=== PATIENT | male | born 1980 | race African-American/Black ===

== ENCOUNTER 2021-11-07 15:22 | Inpatient (IN) | payer SELFPAY ==
[2021-11-07] MEDS ORDERED: NA CHLORIDE 0.9% 1,000 ML ONE (15:46)
[2021-11-07 16:06] LABS: Absolute Lymphocytes (CBC) 1.2 K/uL (0.7-4.9); Hematocrit 47.1 % (39.6-49.0); Lymphocytes % 20.7 % (15.3-44.8); MCV 91.1 fL (80-100); MPV 9.2 fL (7.6-11.3); RBC Red Blood Cell Count 5.17 M/uL (4.33-5.43)
--- NOTE | 2021-11-07 16:39 | RAD REPORT ---
EXAM DESCRIPTION: CT - CTHCSPWOC - 11/07/2021 4:30 pm CLINICAL HISTORY: Trauma, head and neck injury. trauma COMPARISON: No comparisons TECHNIQUE: Axial 5 mm thick images of the head were obtained. Axial 2 mm thick images of the cervical spine were obtained with sagittal and coronal reconstruction images generated and reviewed. All CT scans are performed using dose optimization technique as appropriate and may include automated exposure control or mA/KV adjustment according to patient size. FINDINGS: CT HEAD WITHOUT CONTRAST: No acute hemorrhage, hydrocephalus or extra-axial collection is identified.No areas of brain edema or midline shift. High density fluid is seen in the right maxillary antrum and right ethmoid air cells compatible with hemorrhage.The calvarium is intact. CT CERVICAL SPINE WITHOUT CONTRAST: No fracture or subluxation.Mild lower cervical degenerative changes are present.No prevertebral soft tissues swelling is identified. IMPRESSION: No acute intracranial or cervical spine findings. Mild amount of blood is present in the right ethmoid air cells of the right maxillary antrum.
--- NOTE | 2021-11-07 16:44 | RAD REPORT ---
EXAM DESCRIPTION: CT - CTFB CLINICAL HISTORY: trauma Trauma, facial pain and swelling. COMPARISON: No comparisons TECHNIQUE: Axial 2 mm thick images of the face were obtained with sagittal and coronal reconstructio n images. All CT scans are performed using dose optimization technique as appropriate and may include automated exposure control or mA/KV adjustment according to patient size. FINDINGS: Right-sided orbital blowout fracture is present. Fracture segment is 11 mm in length and d isplaced into the maxillary antrum approximately 2 mm. No muscle herniation. Small defect in the righ t lamina papyracea also present likely a fracture.Mild blood is seen in the right ethmoid air cell an d right maxillary sinus.The mandible is intact. Left nasal bone is slightly angulated and could be br oken, however age of this is unclear. Mild right periorbital soft tissue swelling. IMPRESSION: Right-sided orbital blowout fracture is present as detailed. Subtle fracture right lamina papyracea and possibly left nasal bone.
[2021-11-07] MEDS ORDERED: LIDOCAINE 1% MPF 5 ML VIAL ONE ×2 (18:09→18:10)
[2021-11-07] MEDS ORDERED: METHYLPREDNISOLONE 40 MG INJ ONE (18:09)
[2021-11-07] MEDS ORDERED: CEFAZOLIN SODIUM 1 GM/VIAL ONE (18:09)
[2021-11-07 18:55] LABS: Potassium 3.9 mmol/L (3.5-5.1)
[2021-11-07 19:38] LABS: SARS-CoV-2 Antigen Rapid Res Negative (Negative)
--- NOTE | 2021-11-07 19:39 | EDPHYS ---
Physician Documentation [facility] Name: Janak Mccarthy Age: 41 yrs Sex: Male : 1980 Arrival Date: 11/07/2021 Time: 15:23 Bed 17 Private MD: ED Physician Reji Briscoe HPI: 11/07 20:19 This 41 yrs old Black Male presents to ER via EMS with complaints of Facial Injury. kb 20:19 The patient or guardian reports a laceration, pain, swelling, tenderness. The kb complaints affect the right eye, right cheek and mouth. Context of injury: The problem was sustained outdoors, resulted from a fall, while running. Onset: The symptoms/episode began/occurred just prior to arrival. Associated signs and symptoms: Loss of consciousness: This patient did not experience any loss of consciousness. Pertinent positives: facial pain. Severity of symptoms: At their worst the symptoms were moderate, in the emergency department the symptoms are unchanged. The patient has not experienced similar symptoms in the past. The patient has not recently seen a physician. Historical: - Allergies: 15:38 No Known Allergies; ld1 - Home Meds: 15:38 None [Active]; ld1 - PMHx: 15:38 None; ld1 - PSHx: 15:38 None; ld1 - Immunization history:: Adult Immunizations up to date, Client reports having NOT received the Covid vaccine. - Social history:: Smoking status: Patient denies any tobacco usage or history of. Patient uses street drugs, marijuana, Patient/guardian denies using alcohol. ROS: 18:49 Constitutional: Negative for fever, chills, and weight loss. kb Exam: 20:08 Constitutional: This is a well developed, well nourished patient who is awake, alert, kb and in no acute distress. Cardiovascular: Regular rate and rhythm with a normal S1 and S2. No gallops, murmurs, or rubs. No pulse deficits. Respiratory: Respirations even and unlabored. No increased work of breathing. Talking in full sentences Abdomen/GI: Soft, non-tender. No distention MS/ Extremity: Pulses equal, no cyanosis. Neurovascular intact. Full, normal range of motion. Neuro: Awake and alert, but drowsy; oriented to person, place, time, and situation. Moves all extremities. Psych: Awake, alert, with orientation to person, place and time. Behavior, mood, and affect are within normal limits. 20:08 Head/face: Noted is no obvious of injury or deformity except ecchymosis, that is mild, of the right eye and right cheek, a laceration(s), that is superficial, 1.5 cm(s), of the inner lower lip, swelling, that is moderate, of the right eye, right cheek and mouth. 20:08 ENT: Nose: clotted blood, in right nare, Mouth: Lips: lacerated, approximately 1.5 cm(s), lower lip. 20:08 Skin: injury, abrasion(s), small abrasion noted, of the dorsum of left hand. 20:08 Neuro: Orientation: is normal, Mentation: is normal, able to follow commands, Motor: moves all fours. Vital Signs: 15:32 BP 136 / 94; Pulse 102; Resp 18; Temp 97.9(TE); Pulse Ox 100% on R/A; Weight 99.79 kg; ld1 Height 6 ft. 0 in. (182.88 cm); Pain 9/10; 15:32 Body Mass Index 29.84 (99.79 kg, 182.88 cm) ld1 [address] Coma Score: 17:52 Eye Response: spontaneous(4). Verbal Response: oriented(5). Motor Response: obeys kb commands(6). Total: 15. 20:19 Eye Response: spontaneous(4). Verbal Response: oriented(5). Motor Response: obeys kb commands(6). Total: 15. Laceration: 20:07 Wound Repair of 1.5cm ( 0.6in ) subcutaneous laceration to lower lip. Linear shaped.. kb Distal neuro/vascular/tendon intact. Anesthesia: Wound infiltrated with 2 mls of 1% lidocaine. Wound prep: Wound irrigation with saline. Skin closed with 3 5-0 chromic gut using simple sutures and sterile technique. Patient tolerated well. MDM: 15:24 Patient medically screened. kb 17:52 Data reviewed: vital signs, nurses notes. Data interpreted: Pulse oximetry: on room air kb is 100 %. Interpretation: normal. Physician consultation: Rozina Shelton MD was contacted at 17:04, regarding consult, patient's condition, and will see patient in inpatient room, wants pt admitted to hospitalist, she will see pt in the morning. 17:55 Counseling: I had a detailed discussion with the patient and/or guardian regarding: the kb historical points, exam findings, and any diagnostic results supporting the discharge/admit diagnosis, radiology results, the need for further work-up and treatment in the hospital. 11/07 15:32 Order name: CBC with Diff; Complete Time: 16:14 kb 11/07 15:32 Order name: Basic Metabolic Panel; Complete Time: 18:59 kb 11/07 15:32 Order name: CPK; Complete Time: 18:59 kb 11/07 15:32 Order name: CT Head C Spine; Complete Time: 16:48 kb 11/07 15:32 Order name: CT Facial Bones W/O Con; Complete Time: 16:48 kb 11/07 18:51 Order name: SARS RAPID; Complete Time: 19:42 ss 11/07 15:32 Order name: IV Start; Complete Time: 15:40 kb 11/07 16:13 Order name: Labs - recollect needed: recollect green top; Complete Time: 18:28 bd 11/07 17:55 Order name: Chromic, Sutures; Complete Time: 20:08 kb 11/07 17:55 Order name: Dressing - Wound; Complete Time: 20:08 kb 11/07 17:55 Order name: Gloves, Sterile; Complete Time: 20:08 kb 11/07 17:55 Order name: Setup Suture Tray; Complete Time: 20:08 kb Administered Medications: 15:52 Drug: NS 0.9% 1000 ml Route: IV; Rate: 1000 ml; Site: left antecubital; 11/08 07:26 Follow up: IV Status: Completed infusion; IV Intake: 1000ml [facility] 11/07 18:20 Drug: Ancef (cefazolin) 1 grams Route: IVPB; Site: right antecubital; 11/08 07:26 Follow up: IV Status: Completed infusion; IV Intake: 100ml [facility] 11/07 18:20 Drug: SOLU-Medrol (methylPrednisoLONE) 40 mg Route: IVP; Site: left antecubital; 11/08 07:25 Follow up: Response: No adverse reaction [facility] 11/07 20:08 Drug: Lidocaine (1 %) 1 vials {Note: administered by MINA Parsons.} Volume: 5 ml; Route: sm5 Infiltration; 11/08 07:25 Follow up: Response: No adverse reaction jg9 Disposition Summary: 11/07/21 19:38 Hospitalization Ordered Hospitalization Status: Observation kb Provider: Vernon Arias Condition: Stable kb Problem: new kb Symptoms: are unchanged kb Bed/Room Type: Standard kb Location: Telemetry/MedSurg (observation)(11/08/21 12:14) Room Assignment: [facility](11/08/21 12:14) dw Diagnosis - Right sided orbital blowout fracture kb - Laceration of lip and oral cavity without foreign body kb Forms: - Medication Reconciliation Form kb - SBAR form kb Addendum: 11/11/2021 18:48 Co-signature as Attending Physician, Reji Briscoe MD I agree with the assessment and c velasquez plan of care. Signatures: Dispatcher [employer] EDMS Jaqueline Gonzales, MATEO-C CNS-Ckb Joslyn Thompson Diana, RN RN Reji Lang MD MD cha Garcia, Cindy, RN RN Renetta Johnson, RN RN ld1 Tania Peña RN RN sm5 Isabel Moreno RN RN Humaira Rodriguez RN jg9 Corrections: (The following items were deleted from the chart) 11/07 21:00 19:38 Telemetry/MedSurg (observation) kb cg 21:00 19:38 kb cg 11/08 12:14 11/07 21:00 [facility] ER HOLD cg dw 11/08 12:11/07 21:00 ERHOLD- cg dw
--- NOTE | 2021-11-07 19:39 | ER ---
Nurse's Notes [facility] Name: Janak Mccarthy Age: 41 yrs Sex: Male : 1980 Arrival Date: 11/07/2021 Time: 15:23 Bed 17 Private MD: Diagnosis: Right sided orbital blowout fracture;Laceration of lip and oral cavity without foreign body Presentation: 11/07 15:32 Chief complaint: Patient states: EMS reports pt running from sand control worker in mall parking lot. ld1 Pt reports being tazed - fell forward onto face. Denies LOC. Pt reports losing front tooth, facial pain, laceration to bottom lip. Coronavirus screen: At this time, the client does not indicate any symptoms associated with coronavirus-19. Ebola Screen: No symptoms or risks identified at this time. Initial Sepsis Screen: Does the patient meet any 2 criteria? No. Patient's initial sepsis screen is negative. Does the patient have a suspected source of infection? No. Patient's initial sepsis screen is negative. Risk Assessment: Do you want to hurt yourself or someone else? Patient reports no desire to harm self or others. Onset of symptoms was November 07, 2021. 15:32 Method Of Arrival: EMS: [facility] ld1 15:32 Acuity: ROSALES 3 ld1 Triage Assessment: 15:38 General: Appears in no apparent distress. comfortable, Behavior is calm, cooperative, ld1 appropriate for age. Pain: Complains of pain in mouth, chin and right jaw Pain does not radiate. Pain currently is 9 out of 10 on a pain scale. Quality of pain is described as throbbing. EENT: No signs and/or symptoms were reported regarding the EENT system. Neuro: Level of Consciousness is awake, alert, obeys commands, Oriented to person, place, time, situation. Cardiovascular: Capillary refill < 3 seconds Patient's skin is warm and dry. Respiratory: Airway is patent Respiratory effort is even, unlabored. GI: Abdomen is round non-distended. : No signs and/or symptoms were reported regarding the genitourinary system. Derm: No signs and/or symptoms reported regarding the dermatologic system. Musculoskeletal: No signs and/or symptoms reported regarding the musculoskeletal system. Historical: - Allergies: 15:38 No Known Allergies; ld1 - Home Meds: 15:38 None [Active]; ld1 - PMHx: 15:38 None; ld1 - PSHx: 15:38 None; ld1 - Immunization history:: Adult Immunizations up to date, Client reports having NOT received the Covid vaccine. - Social history:: Smoking status: Patient denies any tobacco usage or history of. Patient uses street drugs, marijuana, Patient/guardian denies using alcohol. Screenin:08 Abuse screen: Denies threats or abuse. Denies injuries from another. Nutritional sm5 screening: No deficits noted. Tuberculosis screening: No symptoms or risk factors identified. Fall Risk None identified. Assessment: 19:30 General: Appears in no apparent distress. Behavior is cooperative. Neuro: Level of sm5 Consciousness is awake, alert, obeys commands, Oriented to person, place, time, situation. Cardiovascular: Capillary refill < 3 seconds Patient's skin is warm and dry. Respiratory: Airway is patent Trachea midline Respiratory effort is even, unlabored. Derm: Wound noted left hand and lower lip. Vital Signs: 15:32 BP 136 / 94; Pulse 102; Resp 18; Temp 97.9(TE); Pulse Ox 100% on R/A; Weight 99.79 kg; ld1 Height 6 ft. 0 in. (182.88 cm); Pain 9/10; 15:32 Body Mass Index 29.84 (99.79 kg, 182.88 cm) ld1 Tian Coma Score: 17:52 Eye Response: spontaneous(4). Verbal Response: oriented(5). Motor Response: obeys kb commands(6). Total: 15. 20:19 Eye Response: spontaneous(4). Verbal Response: oriented(5). Motor Response: obeys kb commands(6). Total: 15. ED Course: 15:23 Patient arrived in ED. bd 15:24 Jaqueline Gonzales FNP-C [facility]. kb 15:24 Reji Briscoe MD is Attending Physician. kb 15:28 Renetta Johnson, CRISTINO is Primary Nurse. ld1 15:29 Isabel Moreno, CRISTINO is Primary Nurse. velasquez 15:35 Triage completed. ld1 15:38 Arm band placed on right wrist. ld1 15:39 Initial lab(s) drawn, by me, sent to lab. Inserted saline lock: 20 gauge in left jw7 antecubital area, using aseptic technique. Blood collected. 16:32 CT Head C Spine In Process Unspecified. EDMS 16:32 CT Facial Bones W/O Con In Process Unspecified. EDMS 18:28 Lab(s) recollected, by me, sent to lab. Inserted saline lock: 22 gauge in left hand, jw7 using aseptic technique. Blood collected. 19:37 Rozina Shelton MD is Hospitalizing Provider. kb 19:37 Vernon Arias is Hospitalizing Provider. kb 20:08 Assist provider with laceration repair on lower lip using sutures. Set up tray. sm5 Performed by Jaqueline LOPEZ Patient tolerated well. 20:08 Patient has correct armband on for positive identification. Bed in low position. Call sm5 light in reach. Side rails up X2. police at bedside. 11/08 07:25 Patient admitted, IV remains in place. jg9 Administered Medications: 11/07 15:52 Drug: NS 0.9% 1000 ml Route: IV; Rate: 1000 ml; Site: left antecubital; 11/08 07:26 Follow up: IV Status: Completed infusion; IV Intake: 1000ml [facility] 11/07 18:20 Drug: Ancef (cefazolin) 1 grams Route: IVPB; Site: right antecubital; 11/08 07:26 Follow up: IV Status: Completed infusion; IV Intake: 100ml [facility] 11/07 18:20 Drug: SOLU-Medrol (methylPrednisoLONE) 40 mg Route: IVP; Site: left antecubital; 11/08 07:25 Follow up: Response: No adverse reaction j9 11/07 20:08 Drug: Lidocaine (1 %) 1 vials {Note: administered by MINA Parsons.} Volume: 5 ml; Route: sm5 Infiltration; 11/08 07:25 Follow up: Response: No adverse reaction jg9 Medication: 11/07 20:08 VIS not applicable for this client. sm5 Intake: 11/08 07:26 IV: 100ml; Total: 100ml. j 07: IV: 1000ml; Total: 1100ml. jg9 Outcome: 11/07 19:38 Decision to Hospitalize by Provider. coco 11/08 07:25 Admitted to ER Hold. Please see [facility] for further documentation. jg9 Condition: stable 12:35 Patient left the ED. jg9 Signatures: Dispatcher [employer] EDMS Jaqueline Gonzales, DUMPER MOLD CLEANER-C DUMPER MOLD CLEANER-Joslyn Mccormick Lauren RN RN ld1 Tania Peña, RN RN sm5 Humaira Castaneda RN RN jg9 Bhumika-StagerIsabel RN RN ha Waits, Jodi jw7 Corrections: (The following items were deleted from the chart) 11/07 15:38 15:32 Chief complaint: Patient states: EMS reports pt running from sand control worker in mall parking ld1 lot. Pt reports being tazed - fell forward onto face. Denies LOC. Pt reports losing front tooth, facial pain, laceration to bottom lip. ld1
--- NOTE | 2021-11-07 20:33 | P.HP ---
Certification for Inpatient Patient admitted to: Observation With expected LOS: <2 Midnights Patient will require the following post-hospital care: None Practitioner: I am a practitioner with admitting privileges, knowledge of patient current condition, hospital course, and medical plan of care. Services: Services provided to patient in accordance with Admission requirements found in Title 42 Section 412.3 of the Code of Federal Regulations Patient History Date of Service: 11/07/21 Reason for admission: Orbital Blowout Fracture History of Present Illness: Patient is a 41 y/o male who presented to the ED via EMS after fall. Per EMS, patient shoplifted from the mall and was running away from the police when police tazed him. He fell forward onto his face, no LOC. Laceration noted to bottom lip, ecchymosis R eye, R lateral incisor cracked in half, abrasions on left dorsum of hand. CT facial bones showed right-sided orbital blowout fracture, subtle fracture of right lamina papyracea, and possible left nasal bone fracture. CT head/spine negative. CPK 368. Laceration repaired in ED. ED provider contacted ENT who recommended patient to see her in clinic tomorrow morning. However, since patient is in police custody that would not be possible. She wished for him to be admitted to hospitalist and will see him in the morning. Patient started on ancef and solumedrol. Patient appears to be under the influence as he is very sleepy but arousable. UDS pending. He is admitted for observation. Home medications list reviewed: Yes - Past Medical/Surgical History Diabetic: No Past Medical History: Patient denies medical history Past Surgical History: Patient denies surgical history Psychosocial/ Personal History: Patient lives at home. - Family History Family History: Reviewed- Non-Contributory - Social History Smoking Status: Never smoker Alcohol use: No CD- Drugs: Yes Caffeine use: Yes Place of Residence: Home Review of Systems ENT: As per HPI Physical Examination - Physical Exam General: Disheveled, Other (Sleepy, but arousable. Altered.) HEENT: PERRLA, Other (Ecchymosis R orbit. 1.5 cm laceration lower lip, repaired.), EOMI Neck: Supple, No LAD Respiratory: Clear to auscultation bilaterally, Normal air movement Cardiovascular: Regular rate/rhythm, Normal S1 S2 Gastrointestinal: Normal bowel sounds, No tenderness Musculoskeletal: No tenderness Integumentary: Other (abrasions noted to L dorsum of hand) Neurological: Normal speech, Normal strength at 5/5 x4 extr, Normal tone - Studies Laboratory Data (last 24 hrs) 11/07/21 18:25: Sodium 143, Potassium 3.9, BUN 9, Creatinine 1.18, Glucose 95 11/07/21 15:55: WBC 5.6, Hgb 16.0, Hct 47.1, Plt Count 294 Assessment and Plan - Problems (Diagnosis) (1) Fracture of orbital floor, blow-out, right, closed Current Visit: Yes Status: Acute (2) Closed lamina papyracea fracture Current Visit: Yes Status: Acute (3) Elevated CPK Current Visit: Yes Status: Acute - Plan -Continue IV fluids for elevated CPK -Ancef and solumedrol per ENT request -UDS pending -Monitor and replete electrolytes per protocol -Reconcile and continue home medications -Lovenox for VTE ppx -Full code Discharge Plan: Home Plan to discharge in: 24 Hours - Advance Directives Does patient have a Living Will: No Does patient have a Durable POA for Healthcare: No - Code Status/Comfort Care Code Status Assessed: Yes (Full) Critical Care: No Time Spent Managing Pts Care (In Minutes): 50
[2021-11-08] MEDS: METHYLPREDNISOLONE 40 MG INJ IV SCH ×4 (00:03→17:00)
[2021-11-08] MEDS: NA CHLORIDE 0.9% 1,000 ML IV SCH ×3 (00:03→20:34)
[2021-11-08] MEDS ORDERED: ONDANSETRON 4 MG/2 ML VIAL IV PRN (00:03)
[2021-11-08] MEDS ORDERED: ACETAMINOPHEN 500 MG TAB PO PRN (00:03)
[2021-11-08] MEDS: CEFAZOLIN 1 GM in NA CHLORIDE 0.9% 50 ML IVPB SCH ×3 (01:00→16:54)
[2021-11-08 01:03] VITALS: BMI 29.8
[2021-11-08] MEDS ORDERED: NA CHLORIDE 0.9% 1,000 ML ONE (01:36)
[2021-11-08] MEDS ORDERED: METHYLPREDNISOLONE 40 MG INJ ONE ×3 (01:36→10:01)
[2021-11-08] MEDS ORDERED: NA CHLORIDE 0.9% 50 ML ONE ×2 (01:36→10:01)
[2021-11-08] MEDS ORDERED: CEFAZOLIN SODIUM 1 GM/VIAL ONE ×2 (01:36→10:01)
[2021-11-08] MEDS ORDERED: ACETAMINOPHEN 500 MG TAB ONE (07:51)
[2021-11-08] MEDS: ENOXAPARIN 40 MG/0.4 ML SQ SCH (09:00)
[2021-11-08] MEDS ORDERED: ENOXAPARIN 40 MG/0.4 ML SQ ONE (10:01)
--- NOTE | 2021-11-08 10:24 | P.PN ---
Date of Service: 11/08/21 ENT Consultation Please see dictated H&P Impression: 1. Closed Rright orbital floor fracture s/p trauma--minimal displacement 2. Right lamina papyracea displaced fracture 3. Bilateral acute maxillary and right ethmoid sinusitis 4. Right eye visual disturbance Plan: 1. Continue steroids and antibiotics. 2. Will re-evaluate right eye vision in 24 hours Thank you for this most interesting consultation and for your fantastic medical management.
[2021-11-08] MEDS: MORPHINE 4 MG/ML SYR IV PRN ×2 (12:41→17:57)
[2021-11-08] MEDS ORDERED: MORPHINE 4 MG/ML SYR ONE (12:45)
[2021-11-08] MEDS ORDERED: ONDANSETRON 4 MG/2 ML VIAL ONE (12:45)
[2021-11-09] MEDS: METHYLPREDNISOLONE 40 MG INJ IV SCH ×3 (00:33→09:17)
[2021-11-09] MEDS: CEFAZOLIN 1 GM in NA CHLORIDE 0.9% 50 ML IVPB SCH ×2 (00:33→09:17)
[2021-11-09] MEDS: MORPHINE 4 MG/ML SYR IV PRN ×2 (00:38→09:17)
--- NOTE | 2021-11-09 01:33 | P.PN ---
Subjective Date of Service: 11/08/21 Pain is controlled. Continue with IV antibiotics and IV pain medication. Surgery in a.m. per ENT. Review of Systems 10-point ROS is otherwise unremarkable Physical Examination - Vital Signs Temperature: 98.1 F Blood Pressure: 141/86 Pulse: 85 Respirations: 16 Pulse Ox (%): 96 - Physical Exam General: Alert, In no apparent distress HEENT: Atraumatic, PERRLA, EOMI Neck: Supple, JVD not distended Respiratory: Clear to auscultation bilaterally, Normal air movement Cardiovascular: Regular rate/rhythm, Normal S1 S2 Gastrointestinal: Normal bowel sounds, No tenderness Musculoskeletal: No tenderness Integumentary: No rashes Neurological: Normal speech, Normal tone, Normal affect Lymphatics: No axilla or inguinal lymphadenopathy - Studies Medications List Reviewed: Yes Assessment & Plan - Problems (Diagnosis) (1) Fracture of orbital floor, blow-out, right, closed Current Visit: Yes Status: Acute (2) Nasal bone fracture Current Visit: Yes Status: Acute - Plan plan: 1. Pain control 2. IV fluids 3. IV antibiotics 4. Appreciate ENT consultation 5. medically low risk for cardiopulmonary complications during surgery - Advance Directives Does patient have a Living Will: No Does patient have a Durable POA for Healthcare: No
[2021-11-09 01:41] VITALS: O2SAT 98
[2021-11-09] MEDS: NA CHLORIDE 0.9% 1,000 ML IV SCH (05:56)
[2021-11-09] MEDS: ENOXAPARIN 40 MG/0.4 ML SQ SCH (09:17)
--- NOTE | 2021-11-09 11:07 | P.PN ---
Date of Service: 11/09/21 ENT Progress Note Patient seen and examined. Right facial, lip and right periorbital swelling and pain have improved with steroids. He still reports "foggy" vision in lateral and inferior gaze and he reports double vision when trying to focus on an object, and it is worsened in a lit room. He also has light hypersensitivity in the r ight eye. Exam: Head: much improved soft tissue swelling of face Eyes: Left eye-- intact visual acuity, PERRLA, EOMI Right eye-- improved visual acuity from yesterday's exam but patient has significant blurred vision in lateral and inferior gaze; PERRLA; scleral injection, no hyphema; injected conjunctival mucosa but no foreign body detected; ecchymosis medial canthus Ears: deferred Nose: improved patency; no active bleeding or blood clots; mild right nasal crusting Oral cavity: much improved lower lip swelling, no dehiscence of repaired laceration; right upper lateral incisor tooth intact, although cracked; midline uvula; posterior oropharynx intact; no bleeding or exudate Neck: supple, trachea midline, no mass or LAD Impression: 1. Right eye visual disturbances to include blurred and double vision with inferior and lateral gaze-- unchanged from prior exam 2. Closed Rright orbital floor fracture s/p trauma 3. Right lamina papyracea displaced fracture s/p trauma 4. Bilateral acute maxillary and right ethmoid sinusitis Plan: 1. Recommend transfer to [facility] in [place]-- for OMFS and possibly oculoplastics, if available as we do not have the equipment available here for definitive repair. 2. Continue steroids and antibiotics as prescribed.
[2021-11-09 12:20] VITALS: BP 138/68; TEMP 97.5
--- NOTE | 2021-11-09 12:22 | CON ---
Date of Consultation: 11/08/2021 Chief Complaint: Right eye pain and blurry vision. History Of Present Illness: The patient is a 41-year-old male, who presented to the emergency room after falling and hitting the right side of his face. He fell forward onto his face, possibly from a concrete curb, which resulted in bottom lip laceration, right inferior orbital floor fracture, and right upper lateral broken incisor tooth as well as multiple abrasions. ENT was consulted due to the fact that the CT of the facial bones demonstrated a right inferior orbital floor fracture as well as a fracture of the right lamina papyracea and possible left nasal bone fracture. Upon arrival to bedside, the patient is awake, alert, oriented and was able to provide the history. Currently, he describes right eye foggy vision and occasional double vision during lateral gaze. He states that right eye pain is tolerable and he actually complains more about the right upper lateral incisor crack tooth stating that he is having pain of the surrounding gingiva. He initially had right nasal epistaxis, but this has subsided since admission and right cheek pain and right frontal pain have improved since admission. No other ENT complaints today. Past Medical History: Denies. Past Surgical History: Denies. Family History: Noncontributory. Social History: Denies tobacco, alcohol, but uses marijuana occasionally. Review of Systems: Head: Right forehead and cheek pain extending to the right periorbital area. Eyes: Right double vision in lateral gaze and blurred vision with mild epiphora. Left eye normal Ears: Denies otorrhea, otalgia. Nose: Positive for right nasal epistaxis and bilateral nasal congestion, negative for exudate. Oral Cavity: Lower lip swelling and right lateral upper incisor cracked tooth with surrounding gingival pain. Neck: Denies mass, enlarged lymph nodes, anterior neck pain; positive for posterior neck pain upon flexion and extension. Physical Examination: Vital Signs: Stable. General: The patient is awake, alert, oriented to person, place, and time. Head: Demonstrates [id number] swelling involving the right cheek and right periorbital area with positive ecchymosis in right periorbital region. Eyes: Visual acuity test demonstrated abnormality with the right eye. He was able to read a fairly large font with the left eye holding the card 2 feet away from the patient, but he was unable to read anything from the right eye. Once I moved it to within 8-10 inches of his face, he was able to read from the right eye. The patient had pain and worsening blurry vision and double vision during extraocular movement test, especially on lateral and inferior gaze. The patient had right scleral injection and conjunctival erythema/edema. Palpable right inferior orbital rim fracture and pain with palpation. No evidence of trauma to the left eye and extraocular movements are intact. Bilateral PERRLA. Ears: Bilateral external auditory canals patent. Tympanic membranes intact. No middle ear effusion. Nose: Bilateral nasal crusting and dried blood noted in the right nasal cavity. Midline septum. No active bleeding or blood clots. Throat: Midline uvula. Posterior oropharynx intact. The patient has right upper lateral incisor tooth that is cracked, but the tooth is not loose and there is mild erythema and edema surrounding the tooth. A 1.5 cm laceration in lower lip, which is repaired and I do not see any evidence of dehiscence or bleeding. Neck: Supple. Trachea midline. No lymphadenopathy. Laboratory Data: CT scan of the facial bones demonstrates approximately 1-2 mm inferior displaced right infraorbital floor fracture and right maxillary sinus opacification with most likely blood and left maxillary antral mucosal thickening or possibly effusion. The patient also has right ethmoid sinus effusion, but appears the cribriform plate is intact, skull base is intact. There is an impressive right lamina papyracea displaced fracture, which is between 2-4 mm at the area of the right inferior orbital rim where it attaches to the lamina papyracea. I do not detect any other fractures including nasal bone fracture. If he has a nasal bone fracture on the left nasal sidewall, it is very subtle and nondisplaced. Diagnoses: 1. Closed right inferior orbital floor fracture with mild displacement. 2. Close right lamina papyracea fracture - displaced. 3. Lower lip laceration. 4. Cracked right upper lateral incisor. Plan: 1. We will place admission overnight and place on IV antibiotics and steroids and hopefully we will get the swelling down and we will recheck visual acuity and extraocular movements in the morning. 2. The patient may need repair by possibly Oral Maxillofacial Surgery/Ocular Plastics, but we will determine this soon. Thank you for this most interesting consultation and for your medical management. ROXY/MELI Voice ID: [id number] Report ID: [id number] JOSIE
== END 2021-11-09 15:45 | disposition home or self-care (01) | DRG 989 ==
LOC: ER 15:22 → EDBD 15:22 → ERHOLD 20:27 → OBSVTOIN 21:11 → 2ND 11-08 12:23
PROVIDERS: ADMIT Hospitalist; ATTEND Hospitalist
PROC: 0CQ13ZZ Repair Lower Lip, Percutaneous Approach (ICD-10-PCS; principal; 2021-11-07)
DX: S02.31XA Fracture of orbital floor, right side, initial encounter for closed fracture (principal); J01.00 Acute maxillary sinusitis, unspecified; J01.20 Acute ethmoidal sinusitis, unspecified; S02.5XXA Fracture of tooth (traumatic), initial encounter for closed fracture; S01.511A Laceration without foreign body of lip, initial encounter; H53.8 Other visual disturbances; H53.2 Diplopia; W01.0XXA Fall on same level from slipping, tripping and stumbling without subsequent striking against object, initial encounter; Y93.02 Activity, running; Y92.481 Parking lot as the place of occurrence of the external cause; F12.90 Cannabis use, unspecified, uncomplicated; Z20.822 Contact with and (suspected) exposure to COVID-19
CPT/HCPCS: 36415; 70450; 70486; 72125; 76377; 80048; 82550; 85025; 87811; 96361; 96365; 96366; 96375; 99285; G0378; J0690; J1650; J2405; J2920; J7030